=== PATIENT | female | born 1940 | race African-American/Black ===

== ENCOUNTER → 2023-03-08 | Day surgery (SDC) | payer OTHER | END | disposition home or self-care (01) | LOC: JMAMMOTONE 09:28 | PROVIDERS: ATTEND Surgery | PROC: BH00ZZZ Plain Radiography of Right Breast (ICD-10-PCS; principal; 2023-03-08) | DX: N64.9 Disorder of breast, unspecified (principal) | CPT/HCPCS: 19281; 19282; A4648 ==

== ENCOUNTER 2023-03-10 03:43 | Day surgery (SDC) | payer OTHER ==
[2023-03-08 13:49] VITALS: BMI 37.8
[2023-03-10] MEDS ORDERED: ISOSULFAN BLUE 50 MG/5 ML VIAL SQ ONE (10:56)
[2023-03-10] MEDS ORDERED: LIDOCAINE HCL 1%, 10 MG/ML (20ML VIAL) ONE (10:56)
[2023-03-10] MEDS ORDERED: ceFAZolin SODIUM 1 GM VIAL ONE (11:28)
[2023-03-10] MEDS ORDERED: ETOMIDATE 20 MG/10 ML VIAL IVPUSH ONE (11:28)
[2023-03-10] MEDS ORDERED: LIDOCAINE HCL/PF 2% SDV 5ML VIAL ONE (11:28)
[2023-03-10] MEDS ORDERED: MIDAZOLAM HCL 2 MG/2 ML SINGLE DOSE VIAL ONE (11:29)
[2023-03-10] MEDS ORDERED: FENTANYL CITRATE/PF 50 MCG/ML VIAL ONE ×4 (11:29→15:37)
[2023-03-10] MEDS ORDERED: PROPOFOL 20 ML ONE (11:29)
[2023-03-10] MEDS ORDERED: ceFAZolin SODIUM 1 GM VIAL IVPB ONE (11:48)
[2023-03-10] MEDS ORDERED: ONDANSETRON 4 MG/2 ML VIAL ONE (11:50)
[2023-03-10] MEDS ORDERED: SEVOFLURANE 250 ML BTL ONE (11:53)
[2023-03-10] MEDS ORDERED: LIDOCAINE HCL 1% PRESERVATIVE FREE - 30ML VIAL IJ ONE ×2 (12:41)
[2023-03-10] MEDS ORDERED: oxyCODONE HCL 5 MG TABLET PO PRN (14:32)
[2023-03-10] MEDS ORDERED: ACETAMINOPHEN 1000 MG/100 ML BAG IVPB PRN (14:32)
[2023-03-10] MEDS ORDERED: ONDANSETRON 4 MG/2 ML VIAL IVPUSH PRN (14:32)
[2023-03-10] MEDS ORDERED: ACETAMINOPHEN INJECTION 100 ML IVPB ONE (14:40)
[2023-03-10] MEDS ORDERED: LACTATED RINGERS SOLUTION 1,000 ML IV SCH (14:45)
[2023-03-10 17:16] VITALS: PULSE 75; RESP 18
[2023-03-10 17:40] VITALS: BP 124/50; TEMP 98
== END 2023-03-10 18:00 | disposition home or self-care (01) ==
LOC: JASU-SURG 03:43
PROVIDERS: ATTEND Surgery
PROC: 0HBT0ZZ Excision of Right Breast, Open Approach (ICD-10-PCS; principal; 2023-03-10 11:00)
PROC: 07B50ZX Excision of Right Axillary Lymphatic, Open Approach, Diagnostic (ICD-10-PCS; 2023-03-10 11:00)
PROC: C71L1ZZ Planar Nuclear Medicine Imaging of Upper Chest Lymphatics using Technetium 99m (Tc-99m) (ICD-10-PCS; 2023-03-10 11:00)
DX: C50.911 Malignant neoplasm of unspecified site of right female breast (principal)
CPT/HCPCS: 76098-TC-FY; 78195-TC; 88307-TC; 88341-TC; 88342-TC; 94760; A9541